=== PATIENT | female | born 1975 | race Caucasian/White ===

== ENCOUNTER 2025-06-22 10:57 | Emergency (ER) | payer SELFPAY | END 2025-06-22 12:30 | disposition home or self-care (01) | LOC: NAV ERS 10:57 | DX: J20.9 Acute bronchitis, unspecified (principal); R03.0 Elevated blood-pressure reading, without diagnosis of hypertension | CPT/HCPCS: 71046; 87070; 87081; 87205; 87428; 87430; 94640 ==